=== PATIENT | male | born 1945 | race Caucasian/White ===

== ENCOUNTER 2021-12-02 11:54 | Emergency (ER) | payer OTHER, BC ==
[~2021-12-02] VITALS: Ht 167.6 cm; Wt 58.0 kg
[2021-12-02] MEDS ORDERED: SODIUM CHLORIDE 0.9% 1,000 ML IVB ONE (12:15)
[2021-12-02 12:52] LABS: Basophils # (auto) 0.1 10 ^3/uL (0-0.2); Eosinophils # (auto) 0 10 ^3/uL (0-0.8); Lymphocytes # (auto) 0.3 10 ^3/uL (0.4-5.4); Mean Corpuscular Hemoglobin 21.5 pg (28.0-32.0); Mean Corpuscular Hgb Conc. 30.1 g/dL (32.0-36.0)
[2021-12-02 12:54] LABS: Basophils % (auto) 0.3 % (0.0-2.0); Hematocrit 15.9 % (41.0-53.0); Mean Corpuscular Volume 71.6 fL (80.0-100.0); Monocytes # (auto) 0.7 10 ^3/uL (0-1.3); Monocytes % (auto) 2.4 % (0.0-12.0); Neutrophils # (auto) 29.8 10 ^3/uL (1.6-8.6); Neutrophils % (auto) 96.3 % (37.0-80.0); Nucleated Red Blood Cells % 0.5 %; Red Blood Cells 2.22 10^6/uL (4.5-5.90)
[2021-12-02 13:10] LABS: INR 1.18 (0.9-1.15); Partial Thromboplastin Time 34.2 sec (24.6-33.4)
[2021-12-02 13:11] LABS: Acetaminophen 3.6 ug/mL (10-30); Salicylate 2.9 mg/dL (2.8-20.0)
[2021-12-02 13:12] LABS: Albumin 2.3 g/dL (3.4-5.0); Calcium 6.9 mg/dL (8.5-10.1); Magnesium 3.6 mg/dL (1.6-2.6); Potassium 4.5 mmol/L (3.5-5.1)
[2021-12-02 13:15] LABS: Bilirubin, Total 0.4 mg/dL (0.2-1.0); Total Protein 6.4 g/dL (6.4-8.2)
[2021-12-02 13:18] LABS: Red Cell Distribution Width 22.6 % (11.8-14.3)
[2021-12-02 13:23] LABS: Hemoglobin 4.8 g/dL (13.5-17.5)
[2021-12-02] MEDS ORDERED: PIPERACILLIN-TAZOB 3.375GM 100 ML IV ONE (13:30)
[2021-12-02] MEDS ORDERED: levoFLOXacin 500MG 100 ML IV ONE (13:30)
[2021-12-02 13:45] LABS: BUN/Creatinine Ratio 18.5
[2021-12-02] MEDS ORDERED: NOREPINEPHRINE 8 MG/250ML KIT 250 ML IV SCH (13:45)
[2021-12-02] MEDS ORDERED: SODIUM CHLORIDE 0.9% 1,000 ML IV ONE ×2 (13:45→14:00)
[2021-12-02] MEDS ORDERED: NOREPINEPHRINE 8 MG/250ML KIT 250 ML IV ONE (13:48)
[2021-12-02 15:23] LABS: Amphetamine Screen, Urine NEGATIVE (NEGATIVE); Barbiturate Scree,Urine NEGATIVE (NEGATIVE); Benzodiazephine Screen, Urine NEGATIVE (NEGATIVE); Cannabinoid Screen, Urine NEGATIVE (NEGATIVE); Cocaine Screen, Urine NEGATIVE (NEGATIVE); Opiate Scree,Urine NEGATIVE (NEGATIVE); Phencyclidine Screen, Urine NEGATIVE (NEGATIVE)
[2021-12-02 15:24] LABS: Urine Bacteria NONE SEEN /hpf (None Seen); Urine Blood 3+ /uL (Negative); Urine Specific Gravity 1.014 (1.001-1.035); Urine WBC 408 /hpf (0 - 3)
[2021-12-02] MEDS ORDERED: SODIUM BICARBONATE 8.4 % INJ 50ML VIAL IV ONE ×2 (16:00)
[2021-12-02] MEDS ORDERED: LORazepam 2MG/ML-1ML VIAL IV PRN (16:45)
[2021-12-02] MEDS: MORPHINE SULFATE INJ 2 MG/ml SYRG IV PRN ×2 (20:04→21:00)
[2021-12-03] VITALS: BP 77/44
[2021-12-03] MEDS ORDERED: MORPHINE SULFATE INJ 2 MG/ml SYRG IV ONE (10:00)
[2021-12-03] MEDS ORDERED: LORazepam 2MG/ML-1ML VIAL IV ONE (10:00)
== END 2021-12-03 00:30 | disposition hospice, home (50) ==
LOC: EDBD 11:54 → ER 11:54
DX: R41.82 Altered mental status, unspecified (principal); D64.9 Anemia, unspecified; N17.9 Acute kidney failure, unspecified; A41.9 Sepsis, unspecified organism; N39.0 Urinary tract infection, site not specified; R77.8 Other specified abnormalities of plasma proteins; I10 Essential (primary) hypertension; Z20.822 Contact with and (suspected) exposure to COVID-19
CPT/HCPCS: 36415; 36600; 71045; 80053; 80307; 80320; 80329; 81001; 82805; 83605; 83735; 84484; 85025; 85610; 85730; 86850; 86900; 86901; 86920; 87040; 87426; 93005; 96361; 96365; 96366; 96367; 96368; 96375; 99285; J1956; J2060; J2270; J2543; 87077; 87186